=== PATIENT | female | born 1990 | race Caucasian/White ===

== ENCOUNTER → 2019-03-23 22:50 | Observation (INO) ==
[2019-03-23 19:21] LABS: Basophils % 0.3 %; Eosinophils % 0.2 %; Hematocrit 33.1 % (35.3-44.9); Hemoglobin 10.7 g/dL (11.5-15.4); Immature Granulocytes % 0.5 % (0-4); Lymphocytes # 2.1 K/mcL (0.6-4.6); Lymphocytes % 20.1 %; Mean Corpuscular HGB Conc 32.3 g/dL (31.6-35.5); Mean Corpuscular Hemoglobin 28.8 pg (28.0-33.3); Mean Platelet Volume 9.3 fL (9.4-12.4); Monocytes # 0.7 K/mcL (0.0-1.3); Monocytes % 6.7 %; Neutrophils # 7.6 K/mcL (1.6-8.9); Platelet Count 254 K/mcL (140-400); Red Blood Count 3.72 M/mcL (3.82-4.97); Red Cell Distribution Width 14.1 % (11.5-14.5); Segmented Neutrophils % 72.2 %; White Blood Count 10.5 K/mcL (4.3-11.1)
[2019-03-23 19:29] LABS: Creatinine,Urine 27 mg/dL; Protein/Creatinine Ratio,Urine 0.15 mg/mg (0.00-0.20)
[2019-03-23 19:40] LABS: Alanine Aminotransferase 11 Units/L (7-52); Aspartate Amino Transferase 17 Units/L (13-39); BUN/Creatinine Ratio 11 (6-26); Blood Urea Nitrogen 5 mg/dL (6-20); Lactate Dehydrogenase 157 Units/L (140-271); Uric Acid 3.1 mg/dL (2.3-7.6); eGFR For African Americans > 60 (> 60); eGFR For Non-African Americans > 60 (> 60)
--- NOTE | 2019-03-23 21:03 | OB/GYN Progress Note ---
Date of Encounter: 03/23/19 Time of Encounter: 20:58 - Assessment and Plan (1) Chronic hypertension affecting Current Visit: Yes Status: Acute BPs in the mild range-recommend 24 hr OBs for 24 hr urine collection and VS/sx monitoring. Pt wants to leave AMA. (2) 38 weeks gestation of Current Visit: Yes Status: Acute hx of PIH then diagnosed w/ cHTN between pregnancies-if no BRENDAN, plan is for delivery 39 wks (3) Polyhydramnios affecting in third trimester Current Visit: Yes Status: Acute checking PRISCILLA-plan for IOL 39 wks (4) Vision disturbance Current Visit: Yes Status: Acute vision disturbance resolved but what she is reporting as far as her sxs today concerning enough to recommend obs, pt lives close to the hospital and would prefer to do 24hr urine protein collection as an outpatient w/ plan to f/up with any concerning sxs Subjective - Subjective Principal diagnosis: vision disturbance intermittently today Interval history: 28yo at 38 2/7 wks EDC determined by LMP c/w 1st tri US w/ hx of cHTN who presents w/ new onset vision disturbance. She has experienced this twice before, once when she delivered her daughter which she had PIH at that time and the 2nd time when she had severely elevated BP in between this and the last. She was diagnosed w/ cHTN after she had the first baby. She reports no URRUTIA, SOB, or RUQ pain. She is nick irregularly. No LOF/vb. Normal FM. It's a boy! Antepartum course: baseline PIH labs including 24hr urine protein of 192, polyhydramios 28cm at 37wks-pt symptomatic w/ GI upset, no SOB Objective - Vital Signs Vital Signs: Intake and Output 03/23/19 03/23/19 03/23/19 07:59 15:59 23:59 Other: Weight 74.5 kg Patient Weight 03/23/19 23:59 Weight 74.5 kg - Exam Abdomen: Present: soft, gravid. Absent: tenderness Uterus: Absent: tenderness Cervical dilation: per upholstery auto trimmer / ballotable - Labs Labs: Abnormal lab results RBC 3.72 M/mcL (3.82-4.97) L 03/23/19 18:50 Hgb 10.7 g/dL (11.5-15.4) L 03/23/19 18:50 Hct 33.1 % (35.3-44.9) L 03/23/19 18:50 MPV 9.3 fL (9.4-12.4) L 03/23/19 18:50 BUN 5 mg/dL (6-20) L 03/23/19 19:05 Creatinine 0.46 mg/dL (0.60-1.20) L 03/23/19 19:05
[2019-03-23 21:22] LABS: Amphetamine Screen,Urine Negative ng/mL (Cutoff=1000)
[2019-03-23 21:23] LABS: Barbiturate Screen,Urine Negative ng/mL (Cutoff=200); Benzodiazepines Screen,Urine Negative ng/mL (Cutoff=200); Cannabinoid Screen,Urine Negative ng/mL (Cutoff = 50); Cocaine Screen,Urine Negative ng/mL (Cutoff= 300); Opiate Screen,Urine Negative ng/mL (Cutoff=300); Phencyclidine Screen,Urine Negative ng/mL (Cutoff=25)
[2019-03-25 15:08] LABS: Total Volume 24 Hour,Urine 3.03 Liters (0.60-1.60)
== END | disposition left against medical advice (07) ==
LOC: 1NENULAB
PROVIDERS: ADMIT Advanced Practice Midwife; ATTEND Advanced Practice Midwife

== ENCOUNTER 2019-03-31 08:00 | Inpatient (IN) ==
[2019-03-31] MEDS ORDERED: Naloxone 0.4 MG/ML INJ IVP PRN (08:29)
[2019-03-31] MEDS ORDERED: Metoclopramide 10 MG/2 ML VIAL IVP PRN (08:29)
[2019-03-31] MEDS ORDERED: Famotidine 20 MG/2 ML VIAL IVP PRN (08:29)
[2019-03-31] MEDS ORDERED: *HR* Nalbuphine 10 MG/ML AMPUL IVP PRN (08:29)
[2019-03-31] MEDS ORDERED: Oxytocin 20 units/ LR 1000 mL 20 UNIT/1,000 ML BAG IVC SCH ×2 (08:30→20:09)
[2019-03-31] MEDS ORDERED: Epidural Premix (fent/bupiv) 110 ML EP SCH (08:30)
--- NOTE | 2019-03-31 08:31 | Anesthesia Evaluation PreOp ---
Date of Encounter: 03/31/19 Time of Encounter: 08:31 - Past History Planned Operation: del, induction Cardiac History: Denies any Significant Hx Pulmonary History: Denies Any Significant HX BIOGEOGRAPHER History: Denies Any Significant HX Other Medical History: Denies Any Significant HX, GERD Anesthesia History: No Prior Anesthetic Complications, Past Anesthesia (previous epidural (no issues reported - wore off at end) no reported family hx.) Alcohol Use: none Drug use: none Medications and Allergies [employer] Tablet 1 / PO DAILY 09/19/18 [History] Zantac 80 mg .ROUTE DAILY 09/19/18 [History] Allergy/AdvReac Type Severity Reaction Status Date / Time No Known Allergies Allergy Verified 09/19/18 11:40 Anesthesia Results - Labs 03/31/19 08:44 Anesthesia Exam - HEENT Pupil (Motor): Pupils equal Mallampati: II Teeth: Normal Oral Opening: Greater than 3 - BIOGEOGRAPHER LOC: Oriented BIOGEOGRAPHER Motor: Normal RUE, Normal LUE, Normal RLE, Normal LLE, Normal Face BIOGEOGRAPHER Sensory: Normal: RUE, LUE, RLE, LLE, Face - Cardiac Rhythm: Regular Murmur: None - Pulmonary Breath Sounds: bilateral Clear Respiratory Effort: Symmetrical Anesthesia Assess/Plan ASA Score: 2 Level of consciousness: Cooperative, Oriented Anesthetic Plan: General, Spinal, Epidural Monitoring Plan: Standard Monitors Recovery Plan: PACU
[2019-03-31 09:03] LABS: Basophils % 0.4 %; Eosinophils % 0.3 %; Hematocrit 35.4 % (35.3-44.9); Hemoglobin 11.3 g/dL (11.5-15.4); Immature Granulocytes % 0.5 % (0-4); Lymphocytes % 25.4 %; Mean Corpuscular HGB Conc 31.9 g/dL (31.6-35.5); Mean Corpuscular Hemoglobin 28.5 pg (28.0-33.3); Mean Corpuscular Volume 89.4 fL (83.0-100.0); Mean Platelet Volume 9.2 fL (9.4-12.4); Monocytes # 0.8 K/mcL (0.0-1.3); Monocytes % 9.7 %; Neutrophils # 4.9 K/mcL (1.6-8.9); Platelet Count 203 K/mcL (140-400); Red Blood Count 3.96 M/mcL (3.82-4.97); Red Cell Distribution Width 14.1 % (11.5-14.5); Segmented Neutrophils % 63.7 %; White Blood Count 7.7 K/mcL (4.3-11.1)
[2019-03-31 09:11] LABS: Amphetamine Screen,Urine Negative ng/mL (Cutoff=1000); Barbiturate Screen,Urine Negative ng/mL (Cutoff=200); Benzodiazepines Screen,Urine Negative ng/mL (Cutoff=200); Cannabinoid Screen,Urine Negative ng/mL (Cutoff = 50); Cocaine Screen,Urine Negative ng/mL (Cutoff= 300); Opiate Screen,Urine Negative ng/mL (Cutoff=300); Phencyclidine Screen,Urine Negative ng/mL (Cutoff=25)
[2019-03-31] MEDS: Ringers Solution, Lactated 1,000 ML IVC SCH ×3 (09:24→16:47)
--- NOTE | 2019-03-31 10:32 | OB/GYN History & Physical ---
Date of Encounter: 03/31/19 Time of Encounter: 10:32 Assessment and Plan (1) 39 weeks gestation of Current visit: Yes Status: Acute admitted for delivery (2) Gestational HTN Current visit: Yes Status: Acute PIH labs and protein creat ration pending Dr. Duvall control manager and aware of patient's assessment and POC Qualifiers: Trimester: third trimester Qualified Code(s): O13.3 - Gestational [-induced] hypertension without significant proteinuria, third trimester History of Present Illness Chief complaint: IOL for gestational HTN HPI: Ms. Wang Jimenez is a 28 year old female @ 39w1d presented to labor and delivery for scheduled IOL for Dr. Duvall for gestational HTN. Patient denies any headache, visual disturbances or epigastric pain. Patient reports good movement. Denies LOF, VB or regular contractions. Patient reports elevated BPs for the last week have been her only complication with . She has received adequate care with Dr. Duvall this . Blood type: O Positive Rubella: Immune Hep B: Nonreactive GBS: Negative Past Med Surg Social Fam HX - Past Medical History Source: patient Medical history: non-contributory Psychiatric history: no psych history - Past Surgical History Surgical History: non-contributory, appendectomy Additional surgical history: breast reduction - Social History Smoking Status: Never smoker Smokeless Tobacco Status: No Alcohol use: none Drug use: none Occupational status: employed Current living situation: Home - Independent Activity Level: Independent ambulation Recent Out of Country Travel Within the Last 8 Weeks: No Exposure or Possible Exposure to Illness During Travel: No - Family History Mother Hx Family Cardiac Disorders: Yes (hypertension) Hx Family Respiratory Disorders: No Hx Family Cancer: No Hx Family GI Disorders: No Hx Family Endocrine Disorder: Yes (diabetes) Hx Family Musculoskeletal Disorders: No Hx Family Neuromuscular Disorders: No Hx Family Neurologic Disorders: No Hx Family HEENT Disorders: No Hx Family Autoimmune Disorders: No Hx Family Reproductive Disorders: No Hx Family Psychosocial Disorders: No Hx Family Medical Disorders: No Obstetrical History - Pregnancies : 2 Para: 1 Term: 1 : 0 Ab's: 0 Livin Medications and Allergies [employer] Tablet 1 / PO DAILY 09/19/18 [History] Zantac 80 mg .ROUTE DAILY 09/19/18 [History] Allergy/AdvReac Type Severity Reaction Status Date / Time No Known Allergies Allergy Verified 09/19/18 11:40 Review of System OB - Constitutional Constitutional ROS IM: no chills, no fever(s), no headache(s) - Cardiovascular Cardiovascular: no chest pain, no leg edema, no lightheadedness, no palpitations, no pedal edema, no syncope - Respiratory Respiratory: no dyspnea - Gastrointestinal Gastrointestinal: no abdominal pain, no constipation, no cramping, no diarrhea, no heartburn, no nausea, no vomiting - Genitourinary Genitourinary: no abnormal vaginal bleeding, no dysuria, no flank pain, no urinary frequency, no urinary hesitancy, no urinary incontinence, no urinary urgency, no vaginal discharge, no vaginal odor, no vaginal pruritis Exam - Constitutional Constitutional: well developed, well nourished, no acute distress, average body habitus - HEENT HEENT: Normocephaly, Mucus Membranes Moist - Neck Neck exam: full ROM, supple - Lungs Respiratory exam: CTAB - Cardiovascular Cardiovascular exam: RRR, +S1, +S2 - Abdomen Abdomen: Present: bowel sounds normal, gravid, non tender - Extremities Extremities exam: full ROM, normal capillary refill, normal inspection Deep Tendon Reflex Grade: 2+ Normal - Vagina Vagina: Present: normal moisture - Cervix Dilation: 1 Effacement: 70 Station: -2 - Uterus Uterus exam: Present: normal size, normal contour - Anus/Rectum Anus/Rectum: Present: normal perianal skin - Comments Comments: FHR 145 BPM moderate variability +15x15 accels no decels noted. Cat. 1 tracing Contraction 2.5-3 min apart Results Result Diagrams: 03/31/19 08:44 Abnormal lab results Hgb 11.3 g/dL (11.5-15.4) L 03/31/19 08:44 MPV 9.2 fL (9.4-12.4) L 03/31/19 08:44 All other labs normal. - VTE Reasons for not Prescribing Prophylaxis: Treatment not Indicated - Low risk for VTE
[2019-03-31 12:38] LABS: Alanine Aminotransferase 12 Units/L (7-52); Aspartate Amino Transferase 18 Units/L (13-39); BUN/Creatinine Ratio 10 (6-26); Blood Urea Nitrogen 5 mg/dL (6-20); Lactate Dehydrogenase 173 Units/L (140-271); Uric Acid 2.9 mg/dL (2.3-7.6); eGFR For African Americans > 60 (> 60); eGFR For Non-African Americans > 60 (> 60)
--- NOTE | 2019-03-31 15:02 | Anesthesia Procedures ---
Date of Encounter: 03/31/19 Time of Encounter: 14:09 Procedures: Anesthesia - Epidural/Spinal Patient ID/Chart reviewed: Yes Patient examined: Yes OB Eval: Gestational age: term OB Eval: : 2 OB Eval: Hx Para: 1 OB Eval: Contractions: Non-stressed pattern Consent Obtained: Yes Supplemental Oxygen: None/Room Air Site Prep: Aseptic Technique, Sterile prep and drape, 0.5% Chlorhexidine/Alcohol Patient position: upright Local Anesthetic: Lidocaine 1% Amount of Local Anesthetic used: 2 Touhy Needle Gauge: 18 Touhy Needle Depth (cm): 6 Catheter Depth at Skin (cm): 10 Test Dose (1.5% Lido + Epi): Volume given (mls): 3 Test Dose Result: Negative Loading Dose: Other: 10ml from solution Loading Dose Administered: Thru Catheter Infusion Med: 0.125% Bupivacaine w/ 2 mcg/ml Fentanyl Infusion Rate (mls/hr): [address]: Tegaderm, Tape Interspace Used: L3-L4 Loss of Resistance (LAUREN): Yes (saline) Blood: No CSF: Yes (25g purposeful) Paresthesia: No Procedure: vss though out, fhr per team
[2019-03-31] MEDS ORDERED: Ropivacaine/PF 0.2% 20 ML VIAL ONE (15:14)
[2019-03-31 15:31] LABS: Protein/Creatinine Ratio,Urine 0.25 mg/mg (0.00-0.20)
[2019-03-31] MEDS ORDERED: Bupivacaine-MPF 0.25% 10 ML VIAL ONE (16:12)
--- NOTE | 2019-03-31 17:51 | Anesthesia Procedures ---
Date of Encounter: 03/31/19 Time of Encounter: 17:06 Procedures: Anesthesia - Epidural/Spinal Patient ID/Chart reviewed: Yes Patient examined: Yes OB Eval: : 2 OB Eval: Hx Para: 1 OB Eval: Dilated at (cm): 6 OB Eval: Contractions: Non-stressed pattern Consent Obtained: Yes (wishes to proceed. ) Supplemental Oxygen: None/Room Air Site Prep: Aseptic Technique, Sterile prep and drape, 0.5% Chlorhexidine/Alcohol Patient position: upright Local Anesthetic: Lidocaine 1% Amount of Local Anesthetic used: 2 Touhy Needle Gauge: 18 Touhy Needle Depth (cm): 6 Catheter Depth at Skin (cm): 10 Test Dose (1.5% Lido + Epi): Volume given (mls): 4 Test Dose Result: Negative Loading Dose: Other: 5ml lido with epi, and 4ml 0.2% rop plain Loading Dose Administered: Thru Catheter Infusion Med: 0.125% Bupivacaine w/ 2 mcg/ml Fentanyl Infusion Rate (mls/hr): [address]: Tegaderm, Tape Interspace Used: Other (L1-L2) Loss of Resistance (LAUREN): Yes (saline) Blood: No CSF: Yes (25g purposeful ) Paresthesia: No Procedure: despite two epidural boluses, with different positions, pt c/o pain Hotspot to left lower quad. requesting another epidural. knowing it may not cover current hotspot, decision to go higher interspace, and inj 0.7ml 0.25% bup isobaric dura-puncture tech. VSS though out entire process and strict aseptic tech maintained. FHR stable per staff.
[2019-03-31] MEDS ORDERED: Ondansetron 4 MG/2 ML VIAL IVP PRN (18:04)
[2019-03-31] MEDS ORDERED: Ondansetron 4 MG/2 ML VIAL ONE (18:04)
[2019-03-31] MEDS ORDERED: *HR* FentaNYL (PF) 100 MCG/2 ML VIAL ONE (18:55)
[2019-03-31] MEDS ORDERED: *HR* Ropivacaine/PF 0.5% 20 ML VIAL ONE (18:55)
--- NOTE | 2019-03-31 19:09 | Anesthesia Progress Note ---
Date of Encounter: 03/31/19 Time of Encounter: 19:01 Anesthesia Note - Note Note: 03/31/19 19:07 pt complete, c/o hotspot left lower quad, bolus with 5ml 0.5% rop with 100mcg fent via epidural, neg aspiration. FHR stable per staff.
--- NOTE | 2019-03-31 19:36 | OB/GYN Procedure Note ---
Delivery - Delivery Date: 03/31/19 Provider: Eyad Duvall Intrapartum events: none Delivery induction: oxytocin, head Delivery augmentation: rupture of membranes Delivery monitor: external FHT, external uterine Anesthesia: epidural Quantitated Blood Loss: 300 - Infant (s) Infant A Delivery Date: 03/31/19 Delivery Time: : Presentation: vertex Position: OA Route of delivery: Gender: Male Viability: Viable Pounds: 8 Ounces: 1 Weight Gram: 3.66 kg at 1 minute: 5 at 5 mins: 9 Shoulder Dystocia: encountered Shoulder Dystocia Maneuvers: Fabain maneuver, suprapubic pressure Shoulder dystocia time elapsed: 5 sec Specimens collected: cord blood Placenta: spontaneous Cord: 3 umbilical vessels - Repair Episiotomy: none Laceration Description: Perineal - 1st Degree - Complications Delivery complications: none Delivery comments: This patient progressed to an anterior lip. I was able to push the anterior lip away and patient was able to push through this. The site was then brought down easily. She is able to deliver the infant's head. We then had a mild shoulder dystocia which was resolved quickly with Fabian maneuver and suprapubic pressure. The anterior for was released and the rest the was then delivered without difficulty. was massaged vigorously. He began to cry. The infant was passed immediately to mother and nursing in attendance. The cord was then clamped and cut and infant was taken to nursing. Cord blood was obtained. The placenta was then delivered spontaneously and intact. There are no cervical, periurethral or vaginal lacerations. There is a first-degree perineal laceration repaired with interrupted stitches of 3-0 Vicryl suture. Karthik stewart delivered a male weight was 8 lbs. 1 oz., 3660 g. Apgars were 5 at 1 minute and 9 at 5 minutes. Estimated blood loss is 300 mL - Disposition Mom disposition: stable in LDR disposition: stable in LDR
[2019-03-31] MEDS ORDERED: Measles/Mumps/Rubella Vacc 0.5 ML VIAL SQ PRN (20:09)
[2019-03-31] MEDS ORDERED: Acetaminophen 325 MG TABLET PO PRN (20:09)
[2019-04-01 07:29] LABS: Basophils % 0.2 %; Eosinophils % 0.1 %; Hematocrit 28.5 % (35.3-44.9); Immature Granulocytes % 0.3 % (0-4); Lymphocytes # 1.9 K/mcL (0.6-4.6); Mean Corpuscular HGB Conc 32.3 g/dL (31.6-35.5); Mean Corpuscular Hemoglobin 28.9 pg (28.0-33.3); Mean Corpuscular Volume 89.6 fL (83.0-100.0); Mean Platelet Volume 9.5 fL (9.4-12.4); Monocytes # 0.8 K/mcL (0.0-1.3); Monocytes % 6.7 %; Neutrophils # 8.9 K/mcL (1.6-8.9); Platelet Count 191 K/mcL (140-400); Red Blood Count 3.18 M/mcL (3.82-4.97); Red Cell Distribution Width 14.2 % (11.5-14.5); Segmented Neutrophils % 76.7 %; White Blood Count 11.6 K/mcL (4.3-11.1)
[2019-04-01 07:37] LABS: Alanine Aminotransferase 9 Units/L (7-52); Aspartate Amino Transferase 22 Units/L (13-39); BUN/Creatinine Ratio 11 (6-26); Blood Urea Nitrogen 5 mg/dL (6-20); Lactate Dehydrogenase 190 Units/L (140-271); Uric Acid 3.1 mg/dL (2.3-7.6); eGFR For African Americans > 60 (> 60); eGFR For Non-African Americans > 60 (> 60)
[2019-04-01 07:43] LABS: Hemoglobin 9.2 g/dL (11.5-15.4)
[2019-04-01] MEDS ORDERED: Ibuprofen 600 MG TABLET PO PRN (08:42)
[2019-04-01] MEDS ORDERED: Prenatal Vit/FA 1 EACH TABLET PO SCH (09:00)
--- NOTE | 2019-04-01 09:08 | Discharge Summary ---
Date of Encounter: 04/01/19 Time of Encounter: 09:06 - Discharge Diagnosis (1) Vaginal delivery Priority: Primary Status: Acute Comments: Feeling well Tolerating regular diet Pain well-controlled with by mouth pain meds Ambulating independently Voiding independently Lochia light Passing flatus, no BM yet Vital signs stable Discharge home today (2) Acute blood loss anemia Priority: Secondary Status: Acute Comments: Continue iron supplementation for 30 days - Discharge Medications Prescriptions: New RX: Ferrous Sulfate 325 mg PO DAILY #30 tablet RX: Acetaminophen [Tylenol] 650 mg PO Q6HR PRN tablet PRN Reason: Mild Pain RX: Ibuprofen [Motrin] 600 mg PO Q6HR PRN #30 tablet PRN Reason: Pain RX: Docusate [Colace] 100 mg PO BID #30 capsule Continued Zantac 80 mg .ROUTE DAILY [employer] Tablet 1 / PO DAILY Home Medications: [employer] Tablet 1 / PO DAILY 09/19/18 [History] Zantac 80 mg .ROUTE DAILY 09/19/18 [History] RX: Acetaminophen [Tylenol] 650 mg PO Q6HR PRN tablet 04/01/19 [Rx] RX: Docusate [Colace] 100 mg PO BID #30 capsule 04/01/19 [Rx] RX: Ferrous Sulfate 325 mg PO DAILY #30 tablet 04/01/19 [Rx] RX: Ibuprofen [Motrin] 600 mg PO Q6HR PRN #30 tablet 04/01/19 [Rx] Allergies/Adverse Reactions: Allergy/AdvReac Type Severity Reaction Status Date / Time No Known Allergies Allergy Verified 09/19/18 11:40 Data Procedures and tests throughout hospitalization: Laboratory Tests 03/31/19 03/31/19 03/31/19 08:44 08:44 08:46 WBC 7.7 RBC 3.96 Hgb 11.3 L Hct 35.4 MCV 89.4 MCH 28.5 MCHC 31.9 RDW 14.1 Plt Count 203 MPV 9.2 L Immature Gran % 0.5 Seg Neutrophils % 63.7 Lymphocytes % 25.4 Monocytes % 9.7 Eosinophils % 0.3 Basophils % 0.4 Neutrophils # 4.9 Lymphocytes # 2.0 Monocytes # 0.8 Eosinophils # 0.0 Basophils # 0.0 BUN 5 L Creatinine 0.48 L Est GFR ( Amer) > 60 Est GFR (Non-Af Amer) > 60 BUN/Creatinine Ratio 10 Uric Acid 2.9 AST 18 ALT 12 Lactate Dehydrogenase 173 Urine Creatinine Protein/Creatinin Ratio Urine Total Protein Urine Opiates Screen Negative Ur Buprenorphine Scrn Negative Ur Barbiturates Screen Negative Ur Phencyclidine Scrn Negative Ur Amphetamines Screen Negative U Benzodiazepines Scrn Negative Urine Cocaine Screen Negative U Marijuana (THC) Screen Negative Ur Drug Screen Interp See Below 03/31/19 04/01/19 04/01/19 15:05 06:19 06:19 WBC 11.6 H D RBC 3.18 L Hgb 9.2 L D Hct 28.5 L MCV 89.6 MCH 28.9 MCHC 32.3 RDW 14.2 Plt Count 191 MPV 9.5 Immature Gran % 0.3 Seg Neutrophils % 76.7 Lymphocytes % 16.0 Monocytes % 6.7 Eosinophils % 0.1 Basophils % 0.2 Neutrophils # 8.9 Lymphocytes # 1.9 Monocytes # 0.8 Eosinophils # 0.0 Basophils # 0.0 BUN 5 L Creatinine 0.46 L Est GFR ( Amer) > 60 Est GFR (Non-Af Amer) > 60 BUN/Creatinine Ratio 11 Uric Acid 3.1 AST 22 ALT 9 Lactate Dehydrogenase 190 Urine Creatinine 44 Protein/Creatinin Ratio 0.25 H Urine Total Protein 11 Urine Opiates Screen Ur Buprenorphine Scrn Ur Barbiturates Screen Ur Phencyclidine Scrn Ur Amphetamines Screen U Benzodiazepines Scrn Urine Cocaine Screen U Marijuana (THC) Screen Ur Drug Screen Interp Labs on day of discharge: Labs from last 24 hours 04/01/19 04/01/19 03/31/19 06:19 06:19 15:05 WBC 11.6 H D RBC 3.18 L Hgb 9.2 L D Hct 28.5 L MCV 89.6 MCH 28.9 MCHC 32.3 RDW 14.2 Plt Count 191 MPV 9.5 Immature Gran % 0.3 Seg Neutrophils % 76.7 Lymphocytes % 16.0 Monocytes % 6.7 Eosinophils % 0.1 Basophils % 0.2 Neutrophils # 8.9 Lymphocytes # 1.9 Monocytes # 0.8 Eosinophils # 0.0 Basophils # 0.0 BUN 5 L Creatinine 0.46 L Est GFR ( Amer) > 60 Est GFR (Non-Af Amer) > 60 BUN/Creatinine Ratio 11 Uric Acid 3.1 AST 22 ALT 9 Lactate Dehydrogenase 190 Urine Creatinine 44 Protein/Creatinin Ratio 0.25 H Urine Total Protein 11 Urine Opiates Screen Ur Buprenorphine Scrn Ur Barbiturates Screen Ur Phencyclidine Scrn Ur Amphetamines Screen U Benzodiazepines Scrn Urine Cocaine Screen U Marijuana (THC) Screen 03/31/19 03/31/19 08:46 08:44 WBC RBC Hgb Hct MCV MCH MCHC RDW Plt Count MPV Immature Gran % Seg Neutrophils % Lymphocytes % Monocytes % Eosinophils % Basophils % Neutrophils # Lymphocytes # Monocytes # Eosinophils # Basophils # BUN 5 L Creatinine 0.48 L Est GFR ( Amer) > 60 Est GFR (Non-Af Amer) > 60 BUN/Creatinine Ratio 10 Uric Acid 2.9 AST 18 ALT 12 Lactate Dehydrogenase 173 Urine Creatinine Protein/Creatinin Ratio Urine Total Protein Urine Opiates Screen Negative Ur Buprenorphine Scrn Negative Ur Barbiturates Screen Negative Ur Phencyclidine Scrn Negative Ur Amphetamines Screen Negative U Benzodiazepines Scrn Negative Urine Cocaine Screen Negative U Marijuana (THC) Screen Negative Date of admission: 03/31/19 08:19 Primary care physician: Tamir Willis Consults: 03/31/19 20:09 Consult to Bowl Sander [CONS] Routine Comment: Vaginal delivery, consult needed Discharging clinician: Yani Finn Anticipated date of discharge: 04/01/19 - Patient Status Disposition: Home, Self-Care Condition: Good Functional capacity at discharge: independent ambulation Overall status at discharge: patient is progressing back to baseline - Discharge Instructions Follow Up With: Tamir Willis DO [Primary Care Provider] - Eyad Duvall MD [Partnered Physician] - - Diet and Activity Activity: increase activity as tolerated Diet: regular diet Hospital Course Reason for admission: induction of labor, IUP at term Delivery: Episiotomy: none Laceration: 1st degree Other procedures: none complications: none Discharge diagnosis: IUP at term delivered baby: male Time spent discussing smoking cessation with patient: 3 to 10 minutes Time Attestation: Total time spent providing and/or coordinating discharge services: Time Spent: Less than 30 minutes Exam - Constitutional Vitals: Temp Pulse Resp BP Pulse Ox 98.4 F 56 16 123/85 100 04/01/19 07:30 04/01/19 07:30 04/01/19 07:30 04/01/19 07:30 04/01/19 03:15 General appearance IM: A&O X 3, pleasant, no acute distress, answers questions appropriately - Respiratory Respiratory exam: Present: CTAB - Cardiovascular Cardiovascular exam IM: Present: RRR, +S1, +S2 - GI/Abdominal GI/Abdominal exam IM: normal bowel sounds, no peritoneal signs - Rectal Rectal exam: deferred - Uterine Tone: Firm Uterus Position: At Umbilicus, 2 Fingers Below Umbilicus - Extremities Exam Extremities exam IM: Present: full ROM, normal capillary refill, normal inspection, radial pulses palpable and symmetrical - Neurological Exam Neurological exam: alert, CN II-XII intact, normal gait, oriented X3, reflexes normal, no focal deficits, strengths equal and symetr throughout - Psychiatric Additional comments: Patient denies history of anxiety and depression. Signs and symptoms of depression discussed with patient and partner and both verbalized understanding of when to seek help
[2019-04-01 16:05] VITALS: BP 136/88
== END 2019-04-01 22:20 | disposition home or self-care (01) | DRG 806 ==
LOC: 1NENULAB 08:19 → 1NENUOBS 22:15
PROVIDERS: ADMIT Obstetrics & Gynecology; ATTEND Obstetrics & Gynecology